=== PATIENT | male | born 1950 | race Caucasian/White ===

== ENCOUNTER 2024-11-17 09:51 | Inpatient (IN) | payer MEDICARE, SELFPAY ==
[2024-11-15 17:49] VITALS: BP 174/81
[2024-11-15 18:13] LABS: % Basophils 1.2 % (0-2); % Eosinophils 2.6 % (0-6); % Immature Granulocytes 0.2 % (0-0.5); % Lymphocytes 24.3 % (20.5-51.1); % Monocytes 8.5 % (1.7-9.3); % Neutrophils 63.2 % (42.2-75.2); Absolute Basophils 0.1 10^3/uL (0-0.2); Absolute Eosinophils 0.2 10^3/uL (0-0.7); Absolute Lymphocytes 2.1 10^3/uL (1.2-3.4); Absolute Monocytes 0.7 10^3/uL (0.1-0.6); Absolute Neutrophils 5.4 10^3/uL (1.4-6.5); Hematocrit 35.8 % (39.0-52.0); Hemoglobin 12.3 g/dL (13.0-18.0); Mean Corp Hgb Conc. 34.4 g/dL (33.0-37.0); Mean Corpuscular Hgb 32.8 pg (27.0-31.0); Mean Corpuscular Volume 95.5 fL (80.0-94.0); Mean Platelet Volume 9.6 fL (7.4-10.4); Nucleated Red Blood Cells % 0 % (-); Platelet Count 230 10^3/uL (130-400); Red Blood Cell Count 3.75 10^6/uL (4.70-6.10); Red Cell Dist. Width 12.7 % (11.5-14.5); White Blood Cell Count 8.6 10^3/uL (4.8-10.8)
[2024-11-15 18:28] LABS: ALT (SGPT) 26 U/L (0-50); AST (SGOT) 32 U/L (17-59); Albumin 4.4 g/dl (3.5-5.0); Alkaline Phosphatase 51 U/L (38-126); Blood Urea Nitrogen 34 mg/dl (9-20); Calcium 9.2 mg/dl (8.4-10.2); Carbon Dioxide 25 mmol/L (22-30); Chloride 102 mmol/L (98-107); Glucose 88 mg/dl (70-99); Potassium 4.2 mmol/L (3.5-5.1); Sodium 137 mmol/L (135-145); Total Bilirubin 0.6 mg/dl (0.2-1.3); Total Protein 7.5 g/dl (6.3-8.2)
[2024-11-15 19:49] VITALS: BP 169/94
[2024-11-15 20:00] VITALS: BP 166/81
--- NOTE | 2024-11-15 20:26 | ED.GENMED ---
History of Present Illness
General
Chief Complaint: Visual Problem
Source: patient
Time Seen by Provider: 11/15/24 19:32
History of Present Illness
History of Present Illness:
74-year-old male presents to the emergency room complaining of vision abnormality. Patient states that he feels his vision is more blurry than normal. This is present whether he is looking with both eyes or each eye individually though the left
seems a bit more blurry than the right. Patient states the symptoms began about 4 days ago. He initially had a ocular migraine. The symptoms he had with his ocular migraine was a loss of peripheral vision. This lasted a few hours and then
improved. During his ocular migraine he also had a period of 'mirror vision'. Objects he looked at work completely reversed. This is never happened either. He has never had a headache. He does wear corrective glasses and the lenses are about
a-year-old. No ocular trauma. No pain in his eyes.
Past History
Past History
ED Past Medical History: Other (Raynaud's, coronary disease with ND, anxiety, hypertension, hay fever)
Social History
Tobacco: Former smoker
Alcohol: Occasional
Family History
Family History: Negative Diabetes, Hypertension or CAD
Phy Exam
Physical Exam
Physical Exam:
General: Awake, Alert, Oriented X3. No acute distress.
Vitals: unremarkable
Head: Atraumatic
Eyes: Pupils equal, EOMI, no fluorescein uptake, intraocular pressures are as follows right eye 18, left eye 29. Anterior chamber appears normal bilaterally.
Throat: Airway intact, no exudates
Neck: Trachea midline
Lungs: Clear and equal b/l
Heart: Regular rate, no murmurs
Abd: Soft, Nontender, No pulsatile mass
Neuro: Nonfocal
Skin: Warm, dry, no rash
Extremities: pulses equal b/l, no edema
Course
Orders/Labs/Results
Orders:
Orders
11/15/24 17:54
EKG [Electrocardiogram (*1)] Urgent
Reason for Study: Hypertension, Benign
CT Head W/o Iv Contrast Urgent
Comment:
Reason For Exam: visual disturbance
EKG- Treatment ONCE
11/15/24 18:06
Complete Blood Count/With Diff Urgent
Comprehensive Metabolic Panel Urgent
11/15/24 23:00
Flush (0.9% Sodium Chloride) [Flush (Nss)] See Dose Instructions IV PER PROTOCOL
11/15/24 23:52
Admit/Transfer Patient As Directed
Co-Sign Provider:
Level of Care: Observation services
Assign to:: Telemetry
Physician / Group: hospitalist
Diagnosis: cva
Reason for Telemetry: CVA/TIA
Date to Stop Telemetry: 11/18/24
Time to Stop Telemetry: 11:00
Code Status As Directed
Resuscitation Status: Full Code
PRN Pain Medication Management As Directed
May give lesser potent ordered pain med per pt: Yes
preference::
Protocol:: Medication orders for pain may be administered in a
manner that supports deferring to patient preference
when the pt is:
- Requesting an ordered lesser potent pain medication.
Least to most potent pain medications are defined
as: acetaminophen < NSAID < tramadol < opioids
(morphine, oxycodone, hydromorphone).
- Requesting a lesser dose of the same medication IF
ORDERED.
- Requesting a less intrusive route of administration
if both routes are prescribed by the provider (PO <
IV).
11/18/24 11:00
DC Protocol for Telemetry ONCE
Abnormal Lab Results
11/15/24
18:06
RBC 3.75 L 10^6/uL
(4.70-6.10)
Hgb 12.3 L g/dL
(13.0-18.0)
Hct 35.8 L %
(39.0-52.0)
MCV 95.5 H fL
(80.0-94.0)
MCH 32.8 H pg
(27.0-31.0)
Absolute Monos (auto) 0.7 H 10^3/uL
(0.1-0.6)
BUN 34 H mg/dl
(9-20)
Creatinine 1.4 H mg/dL
(0.7-1.3)
11/15/24 18:06
11/15/24 18:06
Vital Signs
Initial and Last Documented VS:
Initial Vital Signs
Temp Pulse Resp BP Pulse Ox
97.7 F 82 18 174/81 99
11/15/24 17:49 11/15/24 17:49 11/15/24 17:49 11/15/24 17:49 11/15/24 17:49
Last Documented Vital Signs
Temp Pulse Resp BP Pulse Ox
97.7 F 72 11 166/81 99
11/15/24 17:49 11/15/24 20:00 11/15/24 20:00 11/15/24 20:00 11/15/24 20:00
MDM/Problems Addressed
Differential Diagnosis Includes:
Ocular migraine, CVA, glaucoma
MDM/Problems Addressed:
Patient presents with persistent visual disturbance for the past several days. His ocular exam revealed mildly elevated intraocular pressure on the left eye at 29. CT however shows a acute or subacute right occipital lobe infarct. This certainly
would explain changes in vision. Patient continues to deny a hemianopsia. His exam does not seem consistent with hemianopsia. Case discussed with neurology who recommends aspirin only at this time.
Chronic conditions affecting care: HTN
*Radiology
Radiology exam reviewed: radiology read reviewed
*Pulse Oximetry
Patient hypoxic: no
*EKG
Interpretation: normal
Heart Rate: 71
Rate: normal
Rhythm: sinus
[place]: normal axis
Interval: normal interval
QRS Pattern: normal QRS
Ischemia: no ischemia
*Bobtailer Interpretation
Rate: normal
Interpretation: normal
Heart Rate: 71
Rhythm: sinus
*Critical Care Note
Total Time (30-74mins, 75-104mins- exclusive of procedures): Not Applicable
ED Attending Note
-
Portions of this chart may have been created with voice recognition software.� Occasional wrong word or��sound alike� substitutions may have occurred due to the inherent limitations of voice recognition software.
Discharge Plan
Departure
Patient Disposition: Admit
Date of Disposition: 11/15/24
Time of Disposition: 21:37
Admit to: Telemetry
Presentation/result/management discussed w/ accepting MD/DO: Hospitalist
Condition: Fair
Discharge Problem:
Acute CVA (cerebrovascular accident)
Prescriptions:
No Action
tamsulosin 0.4 mg Capsule
0.4 mg PO HS
Referrals:
UNKNOWN - PT DOES,NOT KNOW [Family Provider] -
Interventions
Interventions:
*Risk Screen - Suicide Last Done: 11/15/24 17:49
*General Assessment Last Done: 11/15/24 17:49
*Neglect/Abuse Screening Last Done: 11/15/24 17:49
*ED COVID-19 Vaccine History Last Done: 11/15/24 17:49
ED-EENT Assessment Last Done: 11/15/24 20:00
ED- Neurological Assessment Last Done: 11/15/24 20:00
ED Swallowing Screen Last Done: 11/15/24 20:00
Discharge Date and Time
Print Language: ECUADOREAN
--- NOTE | 2024-11-15 23:42 | HPS.HSE ---
Family Physician
-
Family Physician: NOT KNOW UNKNOWN - PT DOES
Chief Complaint
-
Blurry vision
History of Present Illness
This is a 74-year-old with past medical history significant for hypertension, remote CAD with NSTEMI status post cath showing clean coronaries, BPH and CKD with baseline creatinine of 1.4 presents to the emergency department 4 days after onset of
blurry vision.
Patient reports binocular blurry vision. This started abruptly approximately 4 days ago. 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 And he thought that he was having similar episode. He initially appeared as though the aura will
improve however his blurry vision returned. He denies diplopia. He denies any headache. He denies any nausea or vomiting. He reports that the blurry vision is present in each eye individually. Patient denies any other neurological symptoms
including facial droop, slurred speech, numbness tingling or weakness. He denies any dizziness or lightheadedness. Denies any recent fevers or chills. Patient denies any recent changes in medications.
In the emergency department he was afebrile, blood pressure was 160/80 with a pulse of 72 satting 99% on room air. ECG showed normal sinus rhythm at a rate of [address] or T wave changes. CBC was completely normal. Electrolytes were
normal. BUN/creatinine were at baseline. CT of the head shows a subacute right occipital lobe infarct.
Medical History
Past Medical History
Past Medical History: Reports CAD (NSTEMI status post PCI showing nonobstructive coronary artery disease), HTN and Other (BPH)
Past Surgical History: Reports Other (Bilateral inguinal hernia repair)
Social History
Tobacco: Other (nicotine gum)
Alcohol: Occasional
Drug: None
Personal: Single ()
Living: Alone
Employment: Retired
Family History
Family History: Early CAD
Allergies / Home Medications
Allergies reflects when Allergies were last updated in [employer].
Home Medications with original date entered in [employer]
Allergy/Medication List:
Allergies
Allergy/AdvReac Type Severity Reaction Status Date / Time
Penicillins Allergy Anaphylaxis Verified 11/15/24 17:56
Home Medications
tamsulosin 0.4 mg capsule 0.4 mg PO HS 11/15/24
Valsartan 160 mg tablet 160 mg p.o. daily
Tadalafil 5 mg tablet 5 mg p.o. daily
Loratadine 10 mg tablet 10 mg p.o. daily
Verapamil ER 180 mg tablet 180 mg p.o. daily
Review of Systems
-
Constitutional: Reports No Symptoms
EENT: Reports No Symptoms
Respiratory: Reports No Symptoms
Cardiac: Reports No Symptoms
Abdomen/GI: Reports No Symptoms
: Reports No Symptoms
Musculoskeletal: Reports No Symptoms
Skin: Reports No Symptoms
Neurological: Reports Other (blurry vision)
Endocrine: Reports No Symptoms
Hematologic/Lymphatic: Reports No Symptoms
Psych: Reports No Symptoms
Physical Exam
Vital Signs
Vital Signs
Temp Pulse Resp BP Pulse Ox
97.7 F 72 11 166/81 99
11/15/24 17:49 11/15/24 20:00 11/15/24 20:00 11/15/24 20:00 11/15/24 20:00
Physical Exam
General: Well Developed, Well Nourished, No Apparent Distress and Comfortable
HEENT: NormoCephalic, Anicteric, Moist mucous membranes, Atraumatic, PERRLA and No Ptosis
Respiratory: Clear
Cardiac: S1/S2 and Regular Rhythm
Breast: Deferred by me
GI: Soft, Non Tender, Non Distended and Normal Bowel Sounds
Rectal: Deferred by Provider
Genito-urinary: Deferred by me
Musculoskeletal: No Clubbing, No Cyanosis and No Edema
Skin: Warm
Neuro: AO x 3, No Motor Deficits, Cranial Nerves Intact and No Sensory Deficits
Hematologic/Lymphatic: No Lymphadenopathy
Psych: Calm
Laboratory Results
-
11/15/24 18:06
11/15/24 18:06
Laboratory Results
Total Bilirubin 0.6 mg/dl (0.2-1.3) 11/15/24 18:06
AST 32 U/L (17-59) 11/15/24 18:06
ALT 26 U/L (0-50) 11/15/24 18:06
Alkaline Phosphatase 51 U/L (38-126) 11/15/24 18:06
Data Reviewed
-
CT Scan: Image Personally Visualized and interpreted and Report Reviewed by me
Lab Data: Labs Reviewed by me
Old Records: Reviewed
Impression/Plan
-
IMPRESSION:
74-year-old with subacute right occipital lobe infarct that appeared to have occurred approximately 4 days ago. Symptoms have been stable. He still reports blurriness but they are improved compared to onset. Denies any other focal neurological
deficits.
PLAN:
1. CVA - R CVA infarct likley occured 4 days ago.
- admit to telemetry to check for arrythmia
- MRI in am
- check lipid panel, a1c,
- start aspirin 81, atorvastatin 40, likely plavix to start per neuro
- neurology consultation
2. HTN
- continue bp control, no indication for permissive htn given subacute nature and stability of symptoms
- continue verapamil and valsartan
3. BPH
- continue tamulosin
- continue tadalafil
DVT PPX - lovenox sq
Code status - full code
[2024-11-16] VITALS (9 sets, daily range): BP systolic 122–163; BP diastolic 67–81; PULSE 68; O2SAT 99; BMI 24.2
--- NOTE | 2024-11-16 03:12 | PTCARENOTE ---
Receive pt from ER. Pt alert oriented 3, calm and cooperative. Pt assisted X1 to his bed, steady on his feet. Pt oriented to the room, call hurd within reach. Pt on NSR on telemonitor. BP tbbyhjnc=067/80, HR=67, T=97.7, SpO2=98%. Pt states that his
vision is blurry on both eyes, but denies diplopia, or visual cuts. NIH=0. Pt passed the swallowing test. Will continue to monitor the pt.
[2024-11-16 08:13] LABS: Hemoglobin 12.1 g/dL (13.0-18.0); Mean Corp Hgb Conc. 33.6 g/dL (33.0-37.0); Mean Corpuscular Hgb 32.2 pg (27.0-31.0); Mean Corpuscular Volume 95.7 fL (80.0-94.0); Mean Platelet Volume 9.7 fL (7.4-10.4); Platelet Count 241 10^3/uL (130-400); Red Blood Cell Count 3.76 10^6/uL (4.70-6.10); Red Cell Dist. Width 12.7 % (11.5-14.5); White Blood Cell Count 7.3 10^3/uL (4.8-10.8)
[2024-11-16 08:48] LABS: Blood Urea Nitrogen 31 mg/dl (9-20); Calcium 9.1 mg/dl (8.4-10.2); Carbon Dioxide 24 mmol/L (22-30); Chloride 102 mmol/L (98-107); Estimated Creatinine Clearance 46 ml/min; Glucose 81 mg/dl (70-99); HDL Cholesterol 43 mg/dl; LDL Cholesterol, Calculated 119 mg/dl; Magnesium 2.2 mg/dl (1.6-2.3); Potassium 4.5 mmol/L (3.5-5.1); Sodium 136 mmol/L (135-145); Total Cholesterol 177 mg/dl (50-199); Triglyceride 78 mg/dl (10-149); Very Low Density Lipoprotein 15 mg/dl (0-30)
--- NOTE | 2024-11-16 08:56 | W.PN.HOSP.TC ---
Today's Communication/Plan
-
Continue with aspirin and statin
Continue with antihypertensives
Check MRI of the brain
Neurology eval pending
Assessment / Plan
Assessment / Plan
IMPRESSION:
74-year-old with subacute right occipital lobe infarct that appeared to have occurred approximately 4 days ago. Symptoms have been stable. He still reports blurriness but they are improved compared to onset. Denies any other focal neurological
deficits.
PLAN:
Acute CVA - R CVA infarct likley occured [address] head is positive for right occipital lobe infarct.
- Continue telemetry
- MRI brain today
-LDL 119. Patient initiated on statin. Hemoglobin A1c pending
- started aspirin 81
- neurology consultation
-Patient uses nicotine Gummies on a daily basis and advised them that he is a risk factor and advised them to quit. He has experienced withdrawals in the past from nicotine so we will slowly taper at down.
HTN
- continue bp control, no indication for permissive htn given subacute nature and stability of symptoms
- continue verapamil and valsartan
BPH
- continue tamulosin
- continue tadalafil
DVT PPX - lovenox sq
Code status - full code
Total time spent on today's encounter was 52 minutes which included time spent in counseling the patient/family regarding diagnosis and treatment plan as listed above, goals of care, and symptom management. Case was discussed with nursing staff,
specialists, and care coordinators/case management. All labs and imaging personally reviewed by me. Remainder the time spent in detailed review of previous records, lab data, imaging, and other medical provider documentation.
Anticipated Discharge: 24 - 48 hours
Subjective/Interval History
-
Date of Service: November 16, 2024
Patient remains with blurring of vision. It has been ongoing for now 7 days. No other associated neurological symptoms. Denies any headache.
Had a remote history of [place] 20+ years ago he says. Denies any further cardiovascular events. Denies any peripheral arterial disease.
Denies any tobacco use which he stopped 20+ years ago but patient has been actively using nicotine chewing gums quite frequently in the day for the last few years.
In the past he had muscle pains from statins so he stopped them.
Objective Data
-
Labs:
Laboratory Results
11/16/24
06:51
WBC 7.3
Hgb 12.1 L
Hct 36.0 L
Plt Count 241
Sodium 136
Potassium 4.5
Chloride 102
Carbon Dioxide 24
BUN 31 H
Creatinine 1.4 H
Glucose 81
Calcium 9.1
Vital Signs:
Vital Signs
Temp Pulse Resp BP Pulse Ox
98.1 F 67 12 122/72 99
11/16/24 07:10 11/16/24 07:10 11/16/24 07:10 11/16/24 07:10 11/16/24 07:10
I&O
11/15/24 11/16/24 11/17/24
06:59 06:59 06:59
Intake Total 0 / 0
Balance 0 / 0
Review of Systems
-
Constitutional: Denies Fever or Chills
Respiratory: Denies Trouble Breathing
Cardiac: Denies Chest Pain
Abdomen/GI: Denies Abdominal Pain, Nausea or Vomiting
Neuro: Denies Dizzy, Headache, Weakness, Numbness or Ataxia
Physical Exam
-
General: Comfortable
Respiratory: Non Labored Respirations; Negative Accessory Resp Muscle Use
Cardiac: Regular Rhythm and S1/S2; Negative Tachycardic
GI: Soft
Neuro: AO x 3 and No Motor Deficits; Negative Tremors, Slurred Speech or Facial Droop
Psych: Calm
Data Reviewed
-
CT Scan: Report Reviewed by me (CT of the head)
Labs: Labs Reviewed by me
--- NOTE | 2024-11-16 09:32 | CON.NEURO ---
Consultation
Order
Date of Consultation: 11/16/24
Requesting Provider: Jeffry Weiss MD
Reason for Consult: Stroke
Neurology Consultation Note.
HPI: This is a 74-year-old right-handed man who presented to [facility] on 11/15/2024 with visual changes. According to the patient he experienced 'an aura migraine' after standing up quickly on 11/09/2024. On 11/10/2024, the aura
worsened, characterized by bilateral 'clouding and tunnel vision'. The patient reports experiencing palinopsia, where objects appeared as mirror images, lasting for a couple of hours on Sunday evening. He denies any difficulties with reading,
writing, or comprehension. The patient reports some pressure in his head but denies headaches. He has been experiencing light sensitivity, particularly in his right eye. The patient's daughter, a BSN, urged him to seek medical attention after these
symptoms persisted for 5 days. The patient has a history of chronic kidney disease and does not take aspirin.
ER VS: 174/81, 82, afebrile
EKG: NSR, QTc Int : 423 ms
Labs:Cr 1.4, LDL 119
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
PMH: HTN, DLP(statin intolerance), CKD, BPH, spinal DJD, Raynaud's syndrome, ROBLES
PSH: ADMITTING REPRESENTATIVE, bilateral inguinal hernia repair
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
FH:early CAD
All:PNC
ROS: Constitutional: Negative. Negative for chills, fever and unexpected weight change.
HENT: Positive for chronic hearing impairment
Eyes: Positive for change in vision
Respiratory: Negative for cough, choking and shortness of breath.
Cardiovascular: Negative for chest pain, palpitations and leg swelling.
Gastrointestinal: Negative for abdominal pain and vomiting.
Endocrine: Negative. Negative for cold intolerance.
Genitourinary: Negative for dysuria, flank pain and urgency.
Musculoskeletal: Positive for arthralgias, neck stiffness
Skin: Negative for rash.
Allergic/Immunologic: Negative. Negative for immunocompromised state.
Neurological: Positive for distal paresthesias
Psychiatric/Behavioral: Positive for intermittent anxiety
General: Well developed. In no acute distress.
Cardio: Regular rate and rhythm without murmur. Extremities are without cyanosis or edema.
Neuro:
Mental Status: Alert, oriented to person, place, and date. Normal attention and recall. Good fund of knowledge. Follows complex requests across the midline. Comprehension, naming, and repetition intact. Immediate and delayed recall 3/3.
Cranial Nerves: Pupils are equally round and reactive to light. EOMs full. Visual nichols full to confrontation. No ptosis. No nystagmus. V1-V3 intact to light touch and pinprick bilaterally, symmetric. Face symmetric. Impaired hearing AU.
The palate elevated well. SCMs and traps 5/5. Tongue midline. No dysarthria.
Motor: Normal bulk and tone. No pronator or arm drift. Strength 5/5 throughout. No clonus.
Sensory: Reduced vibration at the toes left greater than right)
Coordination: No dysmetria or tremor.
Gait: deferred
Assessment and Plan:
I. Early subacute R [employer]EL[employer]AL OPERATOR territory stroke. Likely etiology�embolic
II. HTN
III. DLP
-Continue Telemetry monitoring.
-Blood pressure goal�normotension
-Brain MRI without robles
-TTE
-CTA head and neck
-ASA 81 mg QD indefinitely.
-No DAPT due to the size of the stroke and subacute presentation
-Lipitor 40 mg QHS
-Please check HbA1C
-PT.
-DVT prophylaxis.
I personally reviewed all radiology and labs along with past medical records pertinent to current medical problems. Total time spent in patient care is 60 minutes.
Thank you for allowing us to participate in the care of this patient. We will continue to follow. Please do not hesitate to contact us with any questions or concerns.
Subjective/Objective
Subjective Data
Date of Service: November 16, 2024
Objective Data
Vital Signs
Temp Pulse Resp BP Pulse Ox
36.7 C 67 12 122/72 99
11/16/24 07:10 11/16/24 07:10 11/16/24 07:10 11/16/24 07:10 11/16/24 07:10
Lab Results
11/16/24 06:51
11/16/24 06:51
Sodium 136 mmol/L (135-145) 11/16/24 06:51
Potassium 4.5 mmol/L (3.5-5.1) 11/16/24 06:51
BUN 31 mg/dl (9-20) H 11/16/24 06:51
Glucose 81 mg/dl (70-99) 11/16/24 06:51
Calcium 9.1 mg/dl (8.4-10.2) 11/16/24 06:51
LDL Cholesterol, Calc 119 mg/dl 11/16/24 06:51
Patient Allergies
Penicillins Allergy (Verified 11/15/24 17:56)
Anaphylaxis
Medications
-
Active Medications
Generic Name Dose Route Start Last Admin
Trade Name Freq PRN Reason Stop Dose Admin
Acetaminophen 650 mg 11/16/24 01:29
Acetaminophen 650 Mg Rectal Suppository RECTAL 12/14/24 01:28
Q4HPRN PRN
REBOLLEDO, mild pain, or temp >100.4F
Acetaminophen 650 mg 11/16/24 01:29
Acetaminophen 325 Mg Tablet PO 12/14/24 01:28
Q4HPRN PRN
REBOLLEDO, mild pain, or temp >100.4F
Aspirin 81 mg 11/16/24 08:00
Aspirin 81 Mg Chewable Tablet PO 12/14/24 07:59
DAILY DANIELLE
Atorvastatin Calcium 40 mg 11/16/24 18:00
Atorvastatin (Lipitor) 40 Mg Tablet PO 12/14/24 17:59
QPM DANIELLE
Enoxaparin Sodium 40 mg 11/16/24 18:00
Enoxaparin Sodium 40 Mg/0.4 Ml Syringe SC 12/14/24 17:59
QPM DANIELLE
Loratadine 10 mg 11/16/24 10:00
Loratadine 10 Mg Tablet PO 12/14/24 09:59
DAILY DANIELLE
Nicotine Polacrilex 2 mg 11/16/24 09:10
Nicotine 2 Mg Chewing Gum PO 12/14/24 09:09
Q4HPRN PRN
nicotine urge
Tadalafil 5 Mg Po 0 mg 11/16/24 08:00
Daily PO 12/14/24 07:59
DAILY DANIELLE
Sodium Chloride 0 flush 11/15/24 23:00
Sodium Chloride 0.9% (Flush) Syringe IV 12/13/24 22:59
PER PROTOCOL DANIELLE
Sodium Chloride 0.25 ml 11/16/24 10:00
Nss (Pf) 10 Ml Vial For Ativan 0.5 Mg Dose IV 11/16/24 10:01
ONCE ONE
Tamsulosin HCl 0.4 mg 11/16/24 22:00
Tamsulosin 0.4 Mg Capsule PO 12/14/24 21:59
HS DANIELLE
Valsartan 160 mg 11/16/24 08:00
Valsartan 160 Mg Tablet PO 12/14/24 07:59
DAILY DANIELLE
Verapamil HCl 180 mg 11/16/24 08:00
Verapamil 180 Mg (Extended Release) Tablet PO 12/14/24 07:59
DAILY DANIELLE
Home Medications
�Medication �Instructions �Recorded
tamsulosin 0.4 mg capsule 0.4 mg PO HS 11/15/24
Vital Signs and Labs
-
Vital Signs and Labs:
Vital Signs
Temp Pulse Resp BP Pulse Ox
36.7 C 67 12 122/72 99
11/16/24 07:10 11/16/24 07:10 11/16/24 07:10 11/16/24 07:10 11/16/24 07:10
Lab Results
11/16/24 06:51
11/16/24 06:51
Sodium 136 mmol/L (135-145) 11/16/24 06:51
Potassium 4.5 mmol/L (3.5-5.1) 11/16/24 06:51
BUN 31 mg/dl (9-20) H 11/16/24 06:51
Glucose 81 mg/dl (70-99) 11/16/24 06:51
Calcium 9.1 mg/dl (8.4-10.2) 11/16/24 06:51
LDL Cholesterol, Calc 119 mg/dl 11/16/24 06:51
Medications
-
Medications:
Generic Name Dose Route Start Last Admin
Trade Name Freq PRN Reason Stop Dose Admin
Acetaminophen 650 mg 11/16/24 01:29
Acetaminophen 650 Mg Rectal Suppository RECTAL 12/14/24 01:28
Q4HPRN PRN
REBOLLEDO, mild pain, or temp >100.4F
Acetaminophen 650 mg 11/16/24 01:29
Acetaminophen 325 Mg Tablet PO 12/14/24 01:28
Q4HPRN PRN
REBOLLEDO, mild pain, or temp >100.4F
Aspirin 81 mg 11/16/24 08:00
Aspirin 81 Mg Chewable Tablet PO 12/14/24 07:59
DAILY DANIELLE
Atorvastatin Calcium 40 mg 11/16/24 18:00
Atorvastatin (Lipitor) 40 Mg Tablet PO 12/14/24 17:59
QPM DANIELLE
Enoxaparin Sodium 40 mg 11/16/24 18:00
Enoxaparin Sodium 40 Mg/0.4 Ml Syringe SC 12/14/24 17:59
QPM DANIELLE
Loratadine 10 mg 11/16/24 10:00
Loratadine 10 Mg Tablet PO 12/14/24 09:59
DAILY DANIELLE
Nicotine Polacrilex 2 mg 11/16/24 09:10
Nicotine 2 Mg Chewing Gum PO 12/14/24 09:09
Q4HPRN PRN
nicotine urge
Tadalafil 5 Mg Po 0 mg 11/16/24 08:00
Daily PO 12/14/24 07:59
DAILY DANIELLE
Sodium Chloride 0 flush 11/15/24 23:00
Sodium Chloride 0.9% (Flush) Syringe IV 12/13/24 22:59
PER PROTOCOL DANIELLE
Sodium Chloride 0.25 ml 11/16/24 10:00
Nss (Pf) 10 Ml Vial For Ativan 0.5 Mg Dose IV 11/16/24 10:01
ONCE ONE
Tamsulosin HCl 0.4 mg 11/16/24 22:00
Tamsulosin 0.4 Mg Capsule PO 12/14/24 21:59
HS DANIELLE
Valsartan 160 mg 11/16/24 08:00
Valsartan 160 Mg Tablet PO 12/14/24 07:59
DAILY DANIELLE
Verapamil HCl 180 mg 11/16/24 08:00
Verapamil 180 Mg (Extended Release) Tablet PO 12/14/24 07:59
DAILY DANIELLE
Home Medications
-
Home Medications
tamsulosin 0.4 mg capsule 0.4 mg PO HS 11/15/24
[2024-11-16 09:45] LABS: Glycohemoglobin (HgbA1c) 5.3 % (4.0-5.6)
[2024-11-16] MEDS: CALAN EXTENDED RELEASE 180 MG PO (10:34)
[2024-11-16] MEDS: LOW STRENGTH ASPIRIN 81 MG PO (10:35)
[2024-11-16] MEDS: DIOVAN 160 MG PO (10:35)
[2024-11-16] MEDS: CLARITIN 10 MG PO (10:35)
[2024-11-16] MEDS: NSS (PRESERVATIVE FREE) 0.25 ML IV (12:21)
[2024-11-16] MEDS: ATIVAN 0.5 MG IV (12:21)
--- NOTE | 2024-11-16 12:45 | PTOTSP ---
Speech therapy
Presentation: Patient's speech, language, cognition, and alertness appeared to be WNL during conversation. Patient denied any communicative deficits. Patient stated he has vision difficulty since ~Sunday.
Swallowing Function: PRECISION DANCER observed patient with several sips of thin liquids (straw) and bites of regular consistency solids in which patient appeared to tolerate as he did not exhibit any overt clinical s/sx of aspiration or difficulty with
mastication/ manipulation. Patient denied dysphagia complaints.
Recommendations:
1) Regular consistency solids and thin liquids
2) Standard aspiration precautions
3) Medications as tolerated
4) Continue speech services; pending MRI results.
Plan: PRECISION DANCER will continue to follow; pending MRI results.
[2024-11-16 13:15] LABS: Folate > 20.0 ng/ml (2.76-20); Vitamin B12 894 pg/ml (239-931)
--- NOTE | 2024-11-16 17:41 | PTCARENOTE ---
Pt reports that vision is definitely improving, slightly burry now, will continue to monitor.
[2024-11-16] MEDS: LOVENOX 40 MG SC (17:43)
[2024-11-16] MEDS: LIPITOR 40 MG PO (17:43)
[2024-11-16] MEDS: NICORETTE 2 MG PO (17:58)
[2024-11-16] MEDS: FLOMAX 0.4 MG PO (21:24)
[2024-11-17 03:39] VITALS: BP 125/71
[2024-11-17 06:47] VITALS: BP 135/75
[2024-11-17] MEDS: DIOVAN 160 MG PO (08:08)
[2024-11-17] MEDS: LOW STRENGTH ASPIRIN 81 MG PO (08:08)
[2024-11-17] MEDS: CALAN EXTENDED RELEASE 180 MG PO (08:08)
[2024-11-17] MEDS: CLARITIN 10 MG PO (08:08)
[2024-11-17] MEDS: FLUSH (NSS) 1 FLUSH IV (08:08)
--- NOTE | 2024-11-17 08:38 | W.PN.HOSP.TC ---
Today's Communication/Plan
-
ECHO
CW ASA/Statins
DC planning
Assessment / Plan
Assessment / Plan
IMPRESSION:
74-year-old with subacute right occipital lobe infarct that appeared to have occurred approximately 4 days ago. Symptoms have been stable. He still reports blurriness but they are improved compared to onset. Denies any other focal neurological
deficits.
PLAN:
Acute CVA with blurry vision-imaging including MRI of the brain shows bilateral occipital lobe infarct with 6cm subacute and nonhemorrhagic right occipital infarct and 3 mm punctate area of subacute ischemia/infarct in the lateral cortex of the left
occipital lobe
-Neurology suspect embolic -? atherosclerotic emboli or cardiac emboli.
-Telemetry shows no evidence of A-fib so far. Echocardiogram pending.
- LDL 119. Hemoglobin A1c 5.3
- started aspirin 81 and statins
- neurology consultation
- Patient uses nicotine Gummies on a daily basis and advised them that he is a risk factor and advised them to quit. He has experienced withdrawals in the past from nicotine so we will slowly taper at down.
HTN
- BP under goal
- continue verapamil and valsartan
BPH
- continue tamulosin
- continue tadalafil
DVT PPX - lovenox sq
Code status - full code
Anticipated Discharge: Today
Subjective/Interval History
-
Date of Service: November 17, 2024
Patient still with blurry vision but feels but improved since yesterday. No new symptoms. No headache.
Objective Data
-
Vital Signs:
Vital Signs
Temp Pulse Resp BP Pulse Ox
97.5 F 61 18 135/75 100
11/17/24 03:39 11/17/24 08:08 11/17/24 03:39 11/17/24 08:08 11/17/24 08:07
I&O
11/16/24 11/17/24 11/18/24
06:59 06:59 06:59
Intake Total 0 0 840 / 840
Balance 0 0
Review of Systems
-
Constitutional: Denies Fever or Chills
Respiratory: Denies Trouble Breathing
Cardiac: Denies Chest Pain or Palpitations
Abdomen/GI: Denies Abdominal Pain, Nausea or Vomiting
Physical Exam
-
General: Comfortable
Respiratory: Non Labored Respirations; Negative Accessory Resp Muscle Use
Cardiac: Regular Rhythm (Sinus rhythm on the monitor) and S1/S2
Neuro: AO x 3 and No Motor Deficits; Negative Tremors, Slurred Speech or Facial Droop
Psych: Calm; Negative Confused or Agitated
Data Reviewed
-
Labs: Labs Reviewed by me
--- NOTE | 2024-11-17 10:28 | W.PN.NEURO.1 ---
Today's Communication / Plan
-
Goal of normotension
May pursue TTE as outpatient
ASA 81 mg QD indefinitely
Continue newly established atorvastatin 40 mg QHS
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
DVT prophylaxis
Provide medical educational materials
Patient should avoid nicotine exposure, using as Gummies
Neuro Assessment/Plan
Assessment
Early subacute R OCCUPATIONAL THERAPY ASST territory stroke. Likely etiology�embolic; patient was not a candidate for either tenecteplase or intra-arterial thrombectomy due to timeframe out of window
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
HTN
DLP
Plan
Goal of normotension
May pursue TTE as outpatient
ASA 81 mg QD indefinitely
Continue newly established atorvastatin 40 mg QHS
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
DVT prophylaxis
Provide medical educational materials
Patient should avoid nicotine exposure, using as Gummies
Not clear patient would benefit from hypercoagulable workup at this point
Will follow as outpatient
Subjective/Objective
Subjective Data
Date of Service: November 17, 2024
Objective Data
Vital Signs
Temp Pulse Resp BP Pulse Ox
36.5 C 61 18 135/75 100
11/17/24 06:47 11/17/24 08:08 11/17/24 06:47 11/17/24 08:08 11/17/24 08:07
Lab Results
11/16/24 06:51
11/16/24 06:51
Sodium 136 mmol/L (135-145) 11/16/24 06:51
Potassium 4.5 mmol/L (3.5-5.1) 11/16/24 06:51
BUN 31 mg/dl (9-20) H 11/16/24 06:51
Glucose 81 mg/dl (70-99) 11/16/24 06:51
Calcium 9.1 mg/dl (8.4-10.2) 11/16/24 06:51
LDL Cholesterol, Calc 119 mg/dl 11/16/24 06:51
Vitamin B12 894 pg/ml (239-931) 11/16/24 11:41
Patient Allergies
Penicillins Allergy (Verified 11/15/24 17:56)
Anaphylaxis
Data Reviewed
-
MRI Head: Image Reviewed
Labs: Report Reviewed
Reviewed with: Physician
Old Records: Summarized
[2024-11-17 11:47] VITALS: BP 128/67
[2024-11-17 15:03] VITALS: BP 146/69
--- NOTE | 2024-11-17 16:04 | PTCARENOTE ---
Pt AAO x3, WOODARD well; ambulatory in room/bhardwaj; damari well. No c/o weakness/dizziness. Pt still c/o blurred vision both eyes. VSS. Telemetry:NSR. On room air- pulse ox 99%. Abd soft, damari PO well. Voiding in BR without difficulty. Resting in bed
at present, no c/o. Family member at bedside. Will continue to monitor.
--- NOTE | 2024-11-17 16:19 | CM ---
DANTE met with Aldair this afternoon to complete IA. He was admitted with blurry vision. He lives alone in a 2 story home with 2 entry steps. 8+8 steps to the upstairs.
Aldair is (I) amb and adls; drives in the community and typically active.
Plan: Discharge to home with plan for outpatient neurology f/u. No needs identified.
[2024-11-17] MEDS: LOVENOX SC (17:21)
[2024-11-17] MEDS: LIPITOR 40 MG PO (17:21)
[2024-11-17 18:40] LABS: Hepatitis C Antibody Negative (Negative)
--- NOTE | 2024-11-18 18:01 | W.DCSUMMARY ---
Discharge Summary
Discharge Data
Date of Admission: 11/17/24
Date of Discharge: 11/17/24
-
Pending Results: No
Hospital Course
Primary diagnosis:
Acute bilateral occipital lobe infarcts
Secondary diagnosis:
Essential hypertension
Benign prostatic hypertrophy
Hospital course:
Patient presented with few days of blurry vision with no other associated neurological symptoms. His MR brain imaging showed bilateral occipital lobe infarct with 6 cm subacute and nonhemorrhagic right occipital infarct and 3 mm punctate area of
subacute ischemia/infarct in the lateral cortex of the left occipital lobe. Neurology suspected embolic unclear with atherosclerotic emboli or cardiac emboli. He was started on aspirin and statins. LDL was 119. Hemoglobin A1c was 5.3. Did not
start Plavix because of the size of infarct and subacute nature. Telemetry showed no evidence of A-fib. Had an echocardiogram which showed no evidence of cardiac emboli. Requested cardiology to set up an outpatient Holter monitor.
CT angiogram the head and neck showed no hemodynamically significant ICA stenosis but there was mild calcified plaque in the right carotid bulb/ICA and moderate to large mixed calcified/noncalcified plaque in the left carotid bulb/ICA.
Incidental finding of lobular 8.7 *5*3 mm aneurysm at the level of the anterior communicating artery. Neurosurgery on-call advised the referral to neurosurgery department either at [place] or at [place] as an outpatient for neurovascular eval. This
was communicated with the daughter.
His hypertension was not at goal and he was continued on his home medication.
He started to use nicotine gums on a regular basis sometimes every 2 hours. He was informed that nicotine itself increases the risk factor of cardiovascular disease and advised to quit.
Consultants on board:
Neurology-Camille Delaney
Discharge Plan
-
Patient Disposition: Home (Routine Discharge)
Discharge Diagnosis/Procedures: Acute occipital lobe infarct bilateral
Diet: Low Cholesterol
Activity: As tolerated
Driving Restrictions: Not until seen by your Dr
Others Tests: Holter monitor as outpatient - call cardiology office to schedule it
Activity Restrictions/Additional Instructions:
As discussed with your daughter follow with neurosurgery at [facility] or [facility]. Call either of the neurosugery departments for an appointment.
Referrals:
[facility] [Provider Group] (You will be seen within 1 to 2 weeks. The office will call you to arrange follow-up.)
Jorge A Sim MD [Active] - in one week (To check visual nichols and get vision testing for driving )
Camille Stephen MD [Active] - in one month
Jennifer Manuel MD [Active] - None
()
UNKNOWN - PT DOES,NOT KNOW [Family Provider] - in less than 1 week (Follow-up with your PCP in less than 1 week)
Prescriptions:
New
Tadalafil
1 tab PO DAILY Qty: 1 0RF
Rx Instructions:
This is not a new medication/this is your home medication
verapamil 180 mg Tablet Extended Release
180 mg PO DAILY Qty: 1 0RF
Rx Instructions:
This is not a new medication/this is your home medication
loratadine 10 mg Tablet
10 mg PO DAILY Qty: 1 0RF
Rx Instructions:
This is not a new medication/this is your home medication
valsartan 160 mg Tablet
160 mg PO DAILY Qty: 1 0RF
Rx Instructions:
This is not a new medication/this is your home medication
atorvastatin 40 mg Tablet
40 mg PO QPM Qty: 30 0RF
aspirin 81 mg tablet,delayed release (DR/EC)
81 mg PO DAILY Qty: 30 0RF
Continued
tamsulosin 0.4 mg Capsule
0.4 mg PO HS
Discharge Orders:
Discharge Patient (As Directed); Ordered 11/17/24
Ordered By: Jeremiah Sheth
Discharge Date and Time
Discharge Date/Time: 11/17/24 17:47
Print Language: MAORI
== END 2024-11-17 17:47 | disposition home or self-care (01) | DRG 66 ==
LOC: 4 EAST ACU 09:51
PROVIDERS: Emergency Medicine; ADMITTING PHYSICIAN Internal Medicine; ATTENDING PHYSICIAN Internal Medicine; CONSULT PHYSICIAN Psychiatry & Neurology Neurology; EMERGENCY PHYSICIAN Emergency Medicine
DX: I63.431 Cerebral infarction due to embolism of right posterior cerebral artery (principal); I12.9 Hypertensive chronic kidney disease with stage 1 through stage 4 chronic kidney disease, or unspecified chronic kidney disease; N18.9 Chronic kidney disease, unspecified; G43.109 Migraine with aura, not intractable, without status migrainosus; F41.9 Anxiety disorder, unspecified; I70.0 Atherosclerosis of aorta; I73.00 Raynaud's syndrome without gangrene; N40.0 Benign prostatic hyperplasia without lower urinary tract symptoms; H53.8 Other visual disturbances; I25.10 Atherosclerotic heart disease of native coronary artery without angina pectoris; I25.2 Old myocardial infarction; Z79.82 Long term (current) use of aspirin; Z88.0 Allergy status to penicillin; Z98.61 Coronary angioplasty status; Z87.891 Personal history of nicotine dependence
CPT/HCPCS: 70450; 70496; 70498; 70544; 70548; 70551; 80048; 80053; 80061; 82607; 82746; 83036; 83735; 84155; 84165; 84425; 85025; 85027; 86803; 92610; 93005; 93306; 97162; 97167; 99285; A9585; Q9967

== ENCOUNTER 2024-11-28 08:27 | Outpatient (RCR) | payer MEDICARE, SELFPAY | END 2024-11-28 23:59 | disposition home or self-care (01) | LOC: ROT 08:27 | PROVIDERS: ATTENDING PHYSICIAN Internal Medicine | DX: I69.312 Visuospatial deficit and spatial neglect following cerebral infarction (principal); Z73.6 Limitation of activities due to disability | CPT/HCPCS: 97167 ==

== ENCOUNTER 2024-12-25 09:27 | Outpatient (RCR) | payer MEDICARE, SELFPAY | END 2024-12-25 23:59 | disposition home or self-care (01) | LOC: ROT 09:27 | PROVIDERS: ATTENDING PHYSICIAN Internal Medicine | DX: I69.312 Visuospatial deficit and spatial neglect following cerebral infarction (principal); Z73.6 Limitation of activities due to disability | CPT/HCPCS: 97530; 97535 ==

== ENCOUNTER 2025-01-22 09:25 | Outpatient (RCR) | payer MEDICARE, SELFPAY | END 2025-01-22 23:59 | disposition home or self-care (01) | LOC: ROT 09:25 | PROVIDERS: ATTENDING PHYSICIAN Internal Medicine | DX: I69.312 Visuospatial deficit and spatial neglect following cerebral infarction (principal); Z73.6 Limitation of activities due to disability | CPT/HCPCS: 97110; 97530 ==

== ENCOUNTER 2025-02-23 09:22 | Outpatient (RCR) | payer MEDICARE, SELFPAY | END 2025-02-23 23:59 | disposition home or self-care (01) | LOC: ROT 09:22 | PROVIDERS: ATTENDING PHYSICIAN Internal Medicine | DX: I69.312 Visuospatial deficit and spatial neglect following cerebral infarction (principal); Z73.6 Limitation of activities due to disability | CPT/HCPCS: 97110; 97530 ==

== ENCOUNTER → 2025-03-19 13:15 | Outpatient (REF) | payer MEDICARE, SELFPAY | LOC: SDSPAT 13:15 | PROVIDERS: ATTENDING PHYSICIAN Internal Medicine Cardiovascular Disease; FAMILY PHYSICIAN Internal Medicine; OTHER PHYSICIAN Student in an Organized Health Care Education/Training Program | DX: Z86.73 Personal history of transient ischemic attack (TIA), and cerebral infarction without residual deficits (principal) | CPT/HCPCS: 93005 ==

== ENCOUNTER 2025-03-24 08:42 | Outpatient (RCR) | payer MEDICARE, SELFPAY | END 2025-03-24 23:59 | disposition home or self-care (01) | LOC: ROT 08:42 | PROVIDERS: ATTENDING PHYSICIAN Internal Medicine | DX: I69.312 Visuospatial deficit and spatial neglect following cerebral infarction (principal); Z73.6 Limitation of activities due to disability | CPT/HCPCS: 97110; 97530 ==

== ENCOUNTER → 2025-03-27 06:57 | Day surgery (SDC) | payer MEDICARE, SELFPAY ==
[2025-03-19 13:27] VITALS: BMI 25.9
== END ==
LOC: CATH 06:57
PROVIDERS: ATTENDING PHYSICIAN Internal Medicine Cardiovascular Disease; FAMILY PHYSICIAN Internal Medicine
DX: I34.0 Nonrheumatic mitral (valve) insufficiency (principal); I12.9 Hypertensive chronic kidney disease with stage 1 through stage 4 chronic kidney disease, or unspecified chronic kidney disease; Z86.73 Personal history of transient ischemic attack (TIA), and cerebral infarction without residual deficits; Q21.12 Patent foramen ovale; I70.0 Atherosclerosis of aorta; E78.5 Hyperlipidemia, unspecified; I25.2 Old myocardial infarction; I65.23 Occlusion and stenosis of bilateral carotid arteries; I73.00 Raynaud's syndrome without gangrene; K58.9 Irritable bowel syndrome, unspecified; M19.90 Unspecified osteoarthritis, unspecified site; N18.9 Chronic kidney disease, unspecified; N40.0 Benign prostatic hyperplasia without lower urinary tract symptoms; Z79.02 Long term (current) use of antithrombotics/antiplatelets; Z79.82 Long term (current) use of aspirin; Z79.899 Other long term (current) drug therapy; Z85.828 Personal history of other malignant neoplasm of skin; Z86.0100 Personal history of colon polyps, unspecified; Z87.891 Personal history of nicotine dependence; Z88.0 Allergy status to penicillin; Z90.89 Acquired absence of other organs
CPT/HCPCS: 93312; 93320; 93325

== ENCOUNTER 2025-04-03 06:46 | Day surgery (SDC) | payer MEDICARE, SELFPAY ==
--- NOTE | 2025-04-03 08:08 | ITS.CL.IMPLP ---
Loader Operator - Implant Loop
Implant Loop
Procedure Report:
Date of Procedure: April 03, 2025.
Procedure: Insertable Loop Recorder Implant.
Indication: Embolic stroke of unknown source.
Performing physician: Derek Valadez MD, [facility].
Implant: Medtronic; Reveal LINQII; Model# LNQ22; Serial# [id number].
Technique: The patient was prepped and draped in the usual fashion. A time-out was performed. No intravenous sedation was administered. Local anesthetic was applied to the left pre-pectoral subcutaneous tissue. Using the insertion kit an incision
was made left of the midline in the fourth intercostal space and the device was implanted subcutaneously and directed towards the nipple. Hemostasis was excellent. The skin was closed with steri-strips. The estimated blood loss was estimated at 0.5
ml. There were no complications. No fluoroscopy. R waves measured 0.39 mV and P waves were visible.
Final Programming: Detections: Afib, tachy at 160 bpm, nuris at 30 bpm, pause at 3 sec.
Conclusion: Uncomplicated insertable loop implant.
Recommendation: Routine post-insertable loop care. The device is MRI conditional without a waiting period and up to 3 Chloe.
cc: Norm Lisa MD; Sosa Sifuentes MD (Kristy) ([facility]), Lucio Mcintosh MD.
== END 2025-04-03 08:32 | disposition home or self-care (01) ==
LOC: CATH 06:46
PROVIDERS: ATTENDING PHYSICIAN Internal Medicine Cardiovascular Disease; FAMILY PHYSICIAN Internal Medicine; OTHER PHYSICIAN Student in an Organized Health Care Education/Training Program
DX: Z09 Encounter for follow-up examination after completed treatment for conditions other than malignant neoplasm (principal); I69.351 Hemiplegia and hemiparesis following cerebral infarction affecting right dominant side; I69.398 Other sequelae of cerebral infarction; I10 Essential (primary) hypertension; Z79.82 Long term (current) use of aspirin; Z79.02 Long term (current) use of antithrombotics/antiplatelets; Z79.899 Other long term (current) drug therapy
CPT/HCPCS: 33285; C1764

== ENCOUNTER 2025-04-14 08:38 | Outpatient (RCR) | payer MEDICARE, SELFPAY | END 2025-04-14 12:36 | disposition home or self-care (01) | LOC: ROT 08:38 | PROVIDERS: ATTENDING PHYSICIAN Internal Medicine | DX: I69.312 Visuospatial deficit and spatial neglect following cerebral infarction (principal); Z73.6 Limitation of activities due to disability; I69.398 Other sequelae of cerebral infarction | CPT/HCPCS: 97110; 97530 ==

== ENCOUNTER → 2025-07-22 14:57 | Outpatient (REF) | payer MEDICARE, SELFPAY | LOC: PAVMRI 14:57 | PROVIDERS: ATTENDING PHYSICIAN Psychiatry & Neurology Neurology; FAMILY PHYSICIAN Internal Medicine | DX: I63.9 Cerebral infarction, unspecified (principal) | CPT/HCPCS: 70551 ==

== ENCOUNTER → 2025-09-15 13:23 | Outpatient (REF) | payer MEDICARE, SELFPAY ==
[2025-09-15 14:33] LABS: Albumin 4.5 g/dl (3.5-5.0); Blood Urea Nitrogen 22 mg/dl (9-20); Calcium 9.5 mg/dl (8.4-10.2); Carbon Dioxide 29 mmol/L (22-30); Chloride 104 mmol/L (98-107); Glucose 86 mg/dl (70-99); Potassium 4.6 mmol/L (3.5-5.1); Sodium 138 mmol/L (135-145); eGFR 45.21
== END ==
LOC: REG 13:23
PROVIDERS: ATTENDING PHYSICIAN Student in an Organized Health Care Education/Training Program; FAMILY PHYSICIAN Internal Medicine
DX: I63.9 Cerebral infarction, unspecified (principal); I10 Essential (primary) hypertension; E78.2 Mixed hyperlipidemia
CPT/HCPCS: 36415; 80069

== ENCOUNTER → 2025-09-22 13:03 | Outpatient (REF) | payer MEDICARE, SELFPAY | LOC: RAD 13:03 | PROVIDERS: ATTENDING PHYSICIAN Student in an Organized Health Care Education/Training Program; FAMILY PHYSICIAN Internal Medicine | DX: I63.9 Cerebral infarction, unspecified (principal) | CPT/HCPCS: 71275; Q9967 ==

== ENCOUNTER → 2025-09-29 10:50 | Outpatient (REF) | payer MEDICARE, SELFPAY ==
[2025-09-29 11:33] LABS: Hematocrit 39.5 % (39.0-52.0); Hemoglobin 12.5 g/dL (13.0-18.0); Mean Corp Hgb Conc. 31.6 g/dL (33.0-37.0); Mean Corpuscular Volume 100.8 fL (80.0-94.0); Nucleated Red Blood Cells % 0 % (-); Platelet Count 221 10^3/uL (130-400); Red Cell Dist. Width 12.5 % (11.5-14.5)
== END ==
LOC: REG 10:50
PROVIDERS: ATTENDING PHYSICIAN Student in an Organized Health Care Education/Training Program; FAMILY PHYSICIAN Internal Medicine
DX: I63.9 Cerebral infarction, unspecified (principal); Q21.12 Patent foramen ovale
CPT/HCPCS: 36415; 85025

== ENCOUNTER 2025-10-09 07:51 | Day surgery (SDC) | payer MEDICARE, SELFPAY ==
[2025-10-09 08:18] VITALS: BP 143/71
[2025-10-09 08:22] VITALS: BP 143/71
[2025-10-09] MEDS: LOW STRENGTH ASPIRIN 81 MG PO (08:56)
[2025-10-09 09:01] VITALS: BMI 26.7
[2025-10-09] MEDS: PLAVIX 600 MG PO (09:06)
[2025-10-09] MEDS: VANCOCIN 200 IV (09:37)
[2025-10-09 12:12] LABS: ACT-LR - POC 297 Seconds (116-155)
[2025-10-09 12:12] LABS: ACT-LR - POC 368 Seconds (116-155)
[2025-10-09 12:23] VITALS: BP 125/64
--- NOTE | 2025-10-09 17:35 | ITS.CL.PN ---
Admissions Gate Attendant - Procedure Note
Procedure
Procedure Note:
CARDIAC CATHETERIZATION REPORT
Date of Procedure: 10/09/2025
Referring: Dr. Mukund Caba MD
Indication: cryptogenic stroke with high risk PFO
PROCEDURE(S)
1. intracardiac echocardiography
2. percutaneous closure of a patent guzman ovale
ACCESS:
1. 9F right femoral vein (closure: manual hemostasis) - Ultrasound was utilized for vascular access. The vessel was visualized under ultrasound and noted to be patent. An image of the vessel was stored permanently in the patient's medical record.
Under direct ultrasound guidance, vascular access was obtained using a modified Seldinger technique and a 9 Setswana sheath was placed.
2. 8F right femoral vein (closure: manual hemostasis) - Ultrasound was utilized for vascular access. The vessel was visualized under ultrasound and noted to be patent. An image of the vessel was stored permanently in the patient's medical record.
Under direct ultrasound guidance, vascular access was obtained using a modified Seldinger technique and a 8 Setswana sheath was placed.
CATHETERS
1. 6F MPA
MODERATE SEDATION: 45 minutes of moderate sedation was utilized. An independent medical practitioners was present to assist with and help manage the patient's level of consciousness and physiologic status.
PROCEDURE NARRATIVE: Prior to the procedure, the patient had been loaded with 600 mg of Plavix and vancomycin prophylaxis given. Heparin was given to achieve ACT greater than 300. A long 9F and short 8F sheath were placed in the right femoral vein
sequentially under ultrasound guidance. An 8F Siemens AcuNav ICE catheter was placed in the right atrium and used to obtain images with particular attention paid to the interatrial septum. Color Doppler demonstrated L-R predominant flow through the
PFO and adequate aortic tissue rim for a 25 mm Amplatzer Talisman PFO occluder. A 6 Setswana MPA diagnostic catheter and Adelina wire were used to cross the PFO under ICE and fluoroscopic guidance. The MPA was advanced across the PFO into the left
atrium and a blood sample drawn to confirm left atrial placement. An Amplatz Super Stiff 0.035' wire was placed in the left upper pulmonary vein. The 8F sheath was removed and the 8F Amplatzer Talisman Delivery Sheath advanced over the Superstiff
wire into the left atrium. The introducer was removed and the sheath was bled back. On the back table the Amplatzer Talisman PFO Occluder was prepped and deaired and then loaded into the delivery sheath with a wet to wet connection. The device was
advanced to the tip of the delivery sheath, followed by unsheathing of the left atrial disc. The system was pulled back as a unit until left atrial disc was snug against the interatrial septum after which the right atrial disc was unsheathed. The
device was interrogated on ice and noted to contain tissue between the discs on both sides. Push pull test was performed demonstrating appropriate device stability and presence of tissue between the disc on both sides. Doppler demonstrated no flow
through the PFO. The device was released. Position remained stable on ICE. The ICE catheter was then removed. The groin sheaths were removed and closed with [id number] suture with excellent hemostasis achieved. The patient tolerated the
procedure well without complication.
CONCLUSION: Successful ICE-guided PFO closure (25 mm Amplatzer Talisman PFO occluder) under moderate sedation
RECOMMENDATIONS
1. DAPT with ASA/Plavix for 6 months
2. TTE with bubble study in 6 months
Copy to: Dr. Mukund Lisa MD (nutrition therapist); Dr. Lucio Mcintosh MD (PCP)
Signed: Dashawn Cain MD, PhD
== END 2025-10-09 17:00 | disposition home or self-care (01) ==
LOC: CATH 07:51
PROVIDERS: ATTENDING PHYSICIAN Student in an Organized Health Care Education/Training Program; FAMILY PHYSICIAN Internal Medicine; OTHER PHYSICIAN Student in an Organized Health Care Education/Training Program
DX: Q21.12 Patent foramen ovale (principal); Z86.73 Personal history of transient ischemic attack (TIA), and cerebral infarction without residual deficits; Z79.82 Long term (current) use of aspirin; Z79.02 Long term (current) use of antithrombotics/antiplatelets; Z79.899 Other long term (current) drug therapy; I25.10 Atherosclerotic heart disease of native coronary artery without angina pectoris; I12.9 Hypertensive chronic kidney disease with stage 1 through stage 4 chronic kidney disease, or unspecified chronic kidney disease; N18.9 Chronic kidney disease, unspecified; I25.2 Old myocardial infarction
CPT/HCPCS: 93580; 99152; 99153; 85347; 86850; 86900; 86901; 93005; C1759; C1769; C1817; C1894